=== PATIENT | male | born 2000 | race Caucasian/White ===

== ENCOUNTER 2022-12-26 12:41 | Emergency (ER) | payer OTHER, SELFPAY ==
--- NOTE | ~2022-12-26 | XR_ITS ---
EXAMINATION: XR CHEST CLINICAL INFORMATION: Cough COMPARISON: None available. TECHNIQUE: 2 views of the chest were obtained. FINDINGS: The lungs are hyperinflated but clear of acute process. The heart size and pulmonary vascularity is normal. No gross bony abnormality seen. XR/XR chest 2V IMPRESSION: Hyperinflated lungs without acute process.
--- NOTE | 2022-12-26 13:09 | ED_ITS ---
HPI - URI/Sore Throat General Chief Complaint: Upper Respiratory Symptoms Stated Complaint: throat pain Time Seen by Provider: 12/26/22 13:29 Source: patient and family Mode of arrival: ambulatory History of Present Illness HPI Narrative: 22yo M w/ PMHx childhood asthma c/o dry cough, sore throat and mild SOB at night x6 days. Admits to sick contacts w/ similar cough. Denies difficulty/inability to swallow, fever, chills, ear pain, recent travel, chest pain MD elicited complaint: cough Onset (ago): day(s) Related Data Allergies Allergy/AdvReac Type Severity Reaction Status Date / Time No Known Allergies Allergy Verified 12/26/22 13:09 Review of Systems Review of Systems: Constitutional: No Fever, No Chills ENT/Mouth: No Ear Pain, No Nasal Congestion, No Sinus Pain, No Hoarseness, + sore throat, No Rhinorrhea, No Swallowing Difficulty Cardiovascular: No Chest Pain, + SOB Respiratory: + Cough, No Sputum, No Wheezing Gastrointestinal: No Nausea, No Vomiting, No Abdominal pain Genitourinary: No Dysuria, No Urinary Frequency, No Hematuria, No Flank Pain Musculoskeletal: No joint pain, No Myalgias, No Joint Swelling Skin: No Skin Lesions, No rash Neuro: No Weakness Yes all other systems are reviewed and are negative Constitutional: Constitutional: Reports as per [facility] Past Medical History Attestation statement: The following information was validated with the patient. Source: old records reviewed Social History Social History Advance Directives: No Advance Directives Information Provided: No Physical Exam Vital Signs: Vital Signs: Last Vital Signs Temp 98.6 F 12/26/22 13:10 Pulse 64 12/26/22 13:10 Resp 16 12/26/22 13:10 BP 141/76 H 12/26/22 13:10 Pulse Ox 96 12/26/22 13:10 O2 Del Method Room Air 12/26/22 13:10 BMI result Body Mass Index 22.7 Const: General: cooperative, healthy appearing, no acute distress, alert and awake Orientation/consciousness: patient oriented x3 Limitations: no limitations HEENT: Head: Yes normal to inspection and Yes atraumatic Ears: hearing grossly normal bilaterally, external ears normal, TM's normal bilaterally and mastoids normal General nose exam: Normal external nose present Face and sinus: Yes normal facial exam Throat: Yes uvula midline, No peritonsillar mass, Yes posterior oropharynx abnormal (Erythematous), No uvula laterally displaced and No uvular edema Eyes: General: appearance normal, both eyes and all related structures EOM: EOMs intact bilaterally Neck: Neck: Yes normal visual inspection, Yes no meningeal signs, Yes supple and No anterior neck swelling Resp: Effort & Inspection: normal respiratory effort and no respiratory distress Auscultation: clear to auscultation bilaterally Cardio: Rate: regular rate Heart sounds: S1 normal heart sound present and S2 normal heart sound present Skin: Rashes: no rashes Wounds: no wounds Neuro: General: patient oriented x3, tone normal and no meningeal signs Gait exam (Neuro): Normal gait present Extrem: General: Yes normal to inspection Course Course Course Narrative: -COVID/flu and rapid strep negative XR chest 2V IMPRESSION: Hyperinflated lungs without acute process.? Results discussed with patient including worrisome signs and symptoms and strict return precautions, and when to return to the emergency department. They verbalized understanding and feel safe for discharge at this time. Medical Decision Making Medical Decision Making [facility] Narrative: 22yo M w/ PMHx childhood asthma c/o dry cough, sore throat and mild SOB at night x6 days. On exam vital signs stable, NAD, nontoxic appearing, mild posterior oropharyngeal erythema, no exudates, uvula midline, talking in complete sentences, lungs CTA. Concern for viral illness vs pharyngitis vs bronchitis. Rule out pneumonia. Low suspicion for ACS/PE Plan: COVID/flu, rapid strep, CXR Differential Diagnosis Differential Diagnoses: The differential diagnosis associated with the presentation includes As above Lab Data [facility] Lab Attestation statement: I reviewed the patient's lab results. Labs: Lab Results 12/26/22 12/26/22 12/26/22 Range/Units 13:18 13:18 13:18 COVID-19 (DAIN) Negative (Negative) COVID-19 Clin Com See Note Influenza Type A (ELLA) Negative (Negative) Influenza Type B (ELLA) Negative (Negative) Influenza A & B Note See Note S. pyogenes GrpA ELLA Negative (Negative) Radiology Impression Discussion of test interpretation with radiology: I have reviewed the radiologist's reading. Independent Historian Clinical information obtained from an independent historian. History obtained from or confirmed by: Parent External Record Review External record reviewed: Inpatient record, Office record, Outpatient record, Prior outpatient labs, Prior outpatient radiology, Primary care record and Outside ED record Tests considered The following testing was considered but not selected: As above Discharge Plan Discharge Clinical Impression: Bronchitis Patient Disposition: Home, Self-Care Instructions: Acute Bronchitis (ED) Additional Instructions: You tested negative for COVID, flu, and strep throat. Her x-ray is unremarkable Prednisone as a steroid which will help with bronchitis. Rest Stay hydrated Take Tylenol and Motrin as needed Follow-up with your doctor Referrals: Bert Murphy MD [Primary Care Provider] - 3 days
[2022-12-26 13:10] VITALS: BP 141/76; PULSE 64; RESP 16; TEMP 37; O2SAT 96; BMI 22.7
[2022-12-26 13:34] LABS: IDNOW Serial# 08D9AD1C; Strep A Nucleic Acid Negative (Negative)
[2022-12-26 13:44] LABS: COVID-19 Test Negative (Negative); IDNOW Serial# 9DB6401D
[2022-12-26 13:45] LABS: IDNOW Serial# BCCEAD1C; Influenza A Negative (Negative); Influenza B2 Negative (Negative)
== END 2022-12-26 14:27 | disposition home or self-care (01) ==
PROVIDERS: Physician Assistant; Emergency Provider Emergency Medicine; PCP Family Medicine
DX: J40 Bronchitis, not specified as acute or chronic (principal); Z20.822 Contact with and (suspected) exposure to COVID-19
CPT/HCPCS: 71046; 87502; 87635; 87651; 99282; 99283

== ENCOUNTER 2023-01-19 10:42 | Outpatient (REF) | payer OTHER, SELFPAY ==
[2023-01-19 14:20] LABS: Appearance Urine Cloudy; Color Urine Dark Yellow; Glucose Urine UA Negative (Negative); Leukocyte Esterase Urine Negative (Negative); Nitrite Urine Negative (Negative); Specific Gravity - Urine >= 1.030 (1.005-1.025); Urine Blood Negative (Negative); Urine Ketones Negative (Negative); Urine Protein Negative (Neg-Trace)
[2023-01-19 14:29] LABS: Alanine Aminotransferase 68 U/L (0-40); Albumin Level 4.5 g/dL (3.5-5.0); Alkaline Phosphatase 58 U/L (39-117); Anion Gap 13 (12-20); Aspartate Amino Transferase 31 U/L (5-37); Bilirubin Total 3.9 mg/dL (0.0-1.0); Blood Urea Nitrogen 17 mg/dL (9-16); Calcium 9.3 mg/dL (8.4-10.2); Carbon Dioxide 27 mmol/L (22-29); Chloride 105 mmol/L (96-108); Cholesterol 133 mg/dL; Estimated Glomerular Filt Rate > 60; Glucose Fasting 91 mg/dL (60-99); HDL Cholesterol 38 mg/dL; LDL Cholesterol Calculated 81 mg/dl; Sodium 141 mmol/L (135-145); Total Protein 6.7 g/dL (6.5-8.0); Triglycerides 74 mg/dL
[2023-01-19 14:37] LABS: TSH reflex Free T4 1.42 uIU/mL (0.32-4.0)
[2023-01-19 15:20] LABS: Creatinine Urine 331.71 mg/dL; Microalbum/Creatinine Ratio Ur 6.9 ug/mg cr
[2023-01-20 01:47] LABS: Syphilis Screen Nonreactive (Nonreactive)
[2023-01-20 07:41] LABS: HBS Num1 1.74 mIU/mL (0-7.99); HBsAGNum1 0.39 S/CO (0.00-0.99); HIV AB/AG Nonreactive (Nonreactive); HIV Num 1 0.09 S/CO (0.00-0.99); Hepatitis B Core Antibody Nonreactive (Nonreactive); Hepatitis B Surface Antigen Negative (Negative); ~HepC Num1 0.11 S/CO (0.00-0.79); ~Hepatitis B Surface Antibody NONREACTIVE (Nonreactive); ~Hepatitis C Antibody Nonreactive (Nonreactive)
== END 2023-01-19 10:43 | disposition home or self-care (01) ==
LOC: HO.WFDLDS 10:42
PROVIDERS: Visit Provider Family Medicine
DX: Z00.00 Encounter for general adult medical examination without abnormal findings (principal); Z11.3 Encounter for screening for infections with a predominantly sexual mode of transmission; Z11.4 Encounter for screening for human immunodeficiency virus [HIV]; I10 Essential (primary) hypertension
CPT/HCPCS: 36415; 80053; 80061; 81003; 82043; 84443; 86704; 86706; 86780; 86803; 87340; 87389

== ENCOUNTER 2023-04-06 11:36 | Outpatient (AMB) | payer OTHER, SELFPAY ==
[2023-04-06 11:50] VITALS: BP 118/68; PULSE 83; O2SAT 98; BMI 23.3
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
== END 2023-04-06 12:33 | disposition home or self-care (01) ==
PROVIDERS: Visit Provider Family Medicine
DX: R74.01 Elevation of levels of liver transaminase levels (principal); R17 Unspecified jaundice; E78.6 Lipoprotein deficiency; R51.9 Headache, unspecified; Z00.00 Encounter for general adult medical examination without abnormal findings
CPT/HCPCS: 99214

== ENCOUNTER 2023-04-06 12:34 | Outpatient (REF) | payer OTHER, SELFPAY ==
[2023-04-06 14:39] LABS: MANUAL DIFF FLAG NO
[2023-04-06 14:45] LABS: Basophils Percent Auto 0.8 % (0-2); Eosinophils Absolute Auto 0.1 X10*3/uL (0.0-0.4); Eosinophils Percent Auto 2.4 % (0-4); Hematocrit 47.5 % (42.0-52.0); Hemoglobin 16.8 g/dl (14.0-18.0); Imm Gran Abs Auto 0.01 X10*3/uL (0.00-0.03); Imm Gran Pct Auto 0.2 % (0.0-0.4); Lymphocytes Absolute Auto 1.6 X10*3/uL (1.2-4.9); Lymphocytes Percent Auto 31.9 % (20-40); Mean Corpuscular HGB Conc 35.4 g/dl (31.0-36.0); Mean Corpuscular Hemoglobin 30.4 pg (27.0-33.0); Mean Corpuscular Volume 86.1 fL (80.0-98.0); Mean Platelet Volume 10.4 fL (9.4-12.4); Monocytes Absolute Auto 0.3 X10*3/uL (0.1-1.2); Monocytes Percent Auto 6.4 % (2-11); Neutrophils Absolute Auto 2.9 x10*3/uL (2.0-8.3); Neutrophils Percent Auto 58.3 % (45-73); Platelet Count 262 X10*3/uL (160-400); Red Blood Count 5.52 X10*6/uL (4.60-5.80); Red Cell Distribution Width 12.2 % (11.0-16.0)
[2023-04-06 15:19] LABS: Alanine Aminotransferase 19 U/L (0-40); Albumin Level 4.8 g/dL (3.5-5.0); Alkaline Phosphatase 59 U/L (39-117); Anion Gap 11 (12-20); Aspartate Amino Transferase 21 U/L (5-37); Bilirubin Direct 0.4 mg/dL (0.0-0.5); Bilirubin Total 3.1 mg/dL (0.0-1.0); Blood Urea Nitrogen 14 mg/dL (9-16); Calcium 9.5 mg/dL (8.4-10.2); Carbon Dioxide 29 mmol/L (22-29); Chloride 104 mmol/L (96-108); Estimated Glomerular Filt Rate > 60; Glucose Random 77 mg/dL (60-115); Potassium 4.2 mmol/L (3.3-5.1); Sodium 140 mmol/L (135-145); Total Protein 7.4 g/dL (6.5-8.0)
[2023-04-06 15:25] LABS: Erythrocyte Sedimentation Rate 1 MM/HR (0-15)
[2023-04-06 18:10] LABS: CT PCR NOT DETECTED (Not Detect.); NG PCR NOT DETECTED (Not Detect.)
[2023-04-07 15:54] LABS: CRP High Sensitivity 0.3 mg/L
== END 2023-04-06 12:35 | disposition home or self-care (01) ==
LOC: HO.WFDLDS 12:34
PROVIDERS: Visit Provider Family Medicine
DX: Z00.00 Encounter for general adult medical examination without abnormal findings (principal); Z11.3 Encounter for screening for infections with a predominantly sexual mode of transmission; M54.9 Dorsalgia, unspecified; R17 Unspecified jaundice
CPT/HCPCS: 0353U; 80053; 82248; 85025; 85652; 86141

== ENCOUNTER 2025-07-13 15:43 | Outpatient (AMB) | payer OTHER, SELFPAY ==
[2025-07-13 15:47] VITALS: BP 128/66; PULSE 62; TEMP 36.4; O2SAT 97; BMI 25.7
--- NOTE | 2025-07-13 15:47 | MHC.PC.OV ---
Vital Signs 07/13/25 15:47 Height 5 ft 8 in Weight 169 lb 2 oz BMI 25.7 BP 128/66 Blood Pressure Location Lt brachial Position Sitting Pulse 62 Pulse Source Pulse Oximeter Temp 97.5 F Temp Source Temporal Artery Scan Pulse Oximetry (%) 97 Oxygen Delivery Method Room Air Intake Visit Reasons: Establish care Allergies No Known Allergies Allergy (Verified 07/13/25 15:50) Medication List - Last Reconciled 07/13/25 by Macho Roberts MD No Known Home Meds Tobacco use date assessed: 07/13/25 Dental Screening Dental Screen Date: 07/13/25 Did you have a dental visit in the last 12 months?: No Did you have a dental problem in the last 6 months where you did not have access to dental care?: No Was dental information given to patient?: Patient has dentist HPI HPI Comments History of Present Illness Details The patient is a 25 year old individual presenting for a general checkup and to discuss several health concerns, primarily numbness in the left toe. The patient reports that half of the left large toe is numb with no sensation to poking, which the patient believes started sometime after an injury sustained around age 10 or 11 when a shower door slammed on the toe. Following the injury, the toenail has grown abnormally, with the left side growing slower than the right. The patient has a history of recurrent ganglion cysts, having had them on both wrists simultaneously at one point, which resolved on their own after a couple of months. Another cyst appeared on one wrist and persisted for about two years, causing annoyance and pain, but it recently resolved after the patient started a new job involving heavy lifting. The patient also reports a bothersome numbness in the mid-back area that occurs after standing still for about 5-7 minutes, such as when doing dishes, which is not relieved by stretching. Additionally, the patient experiences pain in both hands when holding objects or performing repetitive motions. Past medical history is significant for childhood asthma, which has since resolved. The patient was prescribed medication for ADHD as a child but never took it. Family history is notable for a father who had a liver tumor in his 70s and a mother with a heart problem diagnosed in her 60s. The patient denies any family history of colon cancer or heart problems at a young age. The patient denies smoking or drinking alcohol. 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 1. Little interest or pleasure in doing things: not at all 2. Feeling down, depressed, or hopeless: not at all 3. Trouble falling or staying asleep, or sleeping too much: not at all 4. Feeling tired or having little energy: not at all 5. Poor appetite or overeating: not at all 6. Feeling bad about yourself - or that you are a failure or have let yourself or your family down: not at all 7. Trouble concentrating on things, such as reading the newspaper or watching television: not at all 8. Moving or speaking so slowly that other people could have noticed. Or the opposite - being so fidgety or restless that you have been moving around a lot more than usual: not at all 9. Thoughts that you would be better off or of hurting yourself in some way: not at all Total score: 0 Depression Screening Interpretation: Negative Depression Screening Done: Yes 14207 - PHQ-9 Billing: Yes Source: Developed by Drs. Myles Fisher, Shy Lewis, Phuc Garcia and colleagues, with an educational chris from [employer]. Thrive Questionnaire Date Thrive assessed: 07/13/25 I am a: Patient What is your living situation today?: I have a steady place to live Within the past 12 months, did the food you bought not last and you didn't have the money to get more?: I choose not to answer this question Within the past 12 months, did you worry whether your food would run out before you got money to buy more?: I choose not to answer this question Do you have trouble paying for medicines?: I choose not to answer this question Do you have trouble getting transportation to medical appointments?: I choose not to answer this question Do you have trouble paying your heating and electricity bill?: I choose not to answer this question Do you have trouble taking care of your child, family member or friend?: I choose not to answer this question Do you have trouble with day-to-day activities such as bathing, preparing meals, shopping, managing finances, etc.?: I choose not to answer this question Are you currently unemployed and looking for a job?: I choose not to answer this question Are you interested in more education?: I choose not to answer this question Please select the resources that you would like help with: None Currently or been in a relationship where the following occur: I choose not to answer THRIVE Score: 0 AUDIT C Alcohol Use Questionnaire (AUDIT-C) 1. How often do you have a drink containing alcohol?: Never 3. How often do you have six or more drinks on one occasion?: Never Total Score: 0 JONES-7 AMB Questionnaire JONES-7 Date JONES - 7 assessed: 07/13/25 Feeling nervous, anxious, or on edge: 0 = Not at all Not being able to stop or control worryin = Not at all Worrying too much about different things: 0 = Not at all Trouble relaxin = Not at all Being so restless that it is hard to sit still: 0 = Not at all Becoming easily annoyed or irritable: 0 = Not at all Feeling afraid as if something awful might happen: 0 = Not at all Total JONES-7 score (0-4 normal; 5-9 mild; 10-14 moderate; 15-21 severe): 0 Source: Developed by Drs. Myles Fisher, Shy Lewis, Phuc Garcia and colleagues, with an educational chris from [employer]. JONES-7 Assessment Billing JONES-7 Assessment Tool: JONES-7 Assessment 79655 Review of Systems Const Details: As per HPI. Physical exam (Primary Care) Vital Signs: Last Vital Signs Temp 97.5 F 07/13/25 15:47 Pulse 62 07/13/25 15:47 BP 128/66 07/13/25 15:47 Pulse Ox 97 07/13/25 15:47 Oxygen Delivery Method Room Air 07/13/25 15:47 BMI result Body Mass Index 25.7 Tobacco/Smoking Status: Tobacco use Status Tobacco use date assessed 07/13/25 07/13/25 15:54 Patient Tobacco Use Status Never used Tobacco 07/13/25 15:54 e-Cigarette/Vaping Use Never Used 07/13/25 15:54 PHQ-9: PHQ-9 Score PHQ-9: Total score 0 07/13/25 15:54 Depression Screening Interpretation: Negative Thrive Assessment: Date of Thrive Assessment Date Thrive assessed 07/13/25 07/13/25 15:54 Currently or been in a relationship where the following occur: I choose not to answer Const Other: Pertinent findings are in BOLD GENERAL APPEARANCE NAD, activity normal for age, well developed/ well nourished, no cyanosis, pallor, or diaphoresis. EYES lids/conjunctiva normal. EARS/NOSE/THROAT Mucous membranes moist, nares normal, lips/teeth normal uvula midline without oral pharyngeal erythema, exudate or swelling TMs normal bilaterally. No lymphangitis/lymphedema. HEAD/NECK normocephalic atraumatic, no facial trauma, neck is supple. RESPIRATORY respiratory effort normal, speaks in full sentences, no tripod position, no accessory muscle use. Lungs clear to auscultation without rhonchi, wheezes, rales CARDIAC Regular rate and rhythm, no edema. ABDOMINAL Soft, ND/NT. No evidence of fluid wave. No pulsatile masses on exam, rebound tenderness, Gonzalez sign or pain over Mcburney's point. MUSCLES/EXTREMITIES No abnormal range of motion, no swelling. Left large toe nail deformity. SKIN Warm, pink and dry. No rashes, dermatoses, petechiae or lesions. NEUROLOGICAL Speech is clear and appropriate. Normal level of consciousness. Gait and coordination are normal. 5/5 strength in all extremities. PSYCH Normal mood and affect. Judgement/competence is appropriate Coding Level of Care Code New Pt Level 4 (37621) Diagnoses Laceration of left great toe without foreign body with damage to nail, initial encounter S91.212A Encounter type: initial encounter Toe: great toe Foreign body presence: without foreign body Chronic midline thoracic back pain M54.6; G89.29 Back pain location: thoracic back pain Chronicity: chronic Back pain laterality: midline Ganglion cyst M67.40 Bilateral hand pain M79.641; M79.642 Additional Codes JONES-7 Assessment Billing - JONES-7 Assessment Tool: JONES-7 Assessment 97392 ([id number]) PHQ-9 - 60151 - PHQ-9 Billing: Yes ([id number]) Assessment & Plan Assessment & Plan (1) Laceration of toe of left foot with damage to nail: Code(s): S91.219A - Laceration without foreign body of unspecified toe(s) with damage to nail, initial encounter Category: Medical Qualifiers: Encounter type: initial encounter Toe: great toe Foreign body presence: without foreign body Qualified Code(s): S91.212A - Laceration without foreign body of left great toe with damage to nail, initial encounter Plan: - The numbness is likely due to a remote nerve injury from childhood trauma. - A systemic cause is unlikely as symptoms are localized and there is no numbness in the other foot. - Plan to refer the patient to a comptometer operator for evaluation of both the nail abnormality and the chronic numbness. (2) Back pain: Code(s): M54.9 - Dorsalgia, unspecified Category: Medical Qualifiers: Back pain location: thoracic back pain Chronicity: chronic Back pain laterality: midline Qualified Code(s): M54.6 - Pain in thoracic spine; G89.29 - Other chronic pain Plan: - The numbness in the mid-back with prolonged standing could be muscular or potentially related to an old, minor vertebral fracture. - Plan to obtain an X-ray of the thoracic spine to rule out a bony abnormality. 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 - Plan to refer to orthopedics for consideration of definitive treatment if the cyst recurs. - The patient was instructed to contact the clinic via phone or patient portal to arrange the referral if needed. (4) Bilateral hand pain: Code(s): M79.641 - Pain in right hand; M79.642 - Pain in left hand Category: Medical Plan: - The hand pain is mechanical, triggered by repetitive motion, and not suggestive of a serious condition. - Carpal tunnel syndrome is less likely as Phalen's and Tinel's tests were negative. - Plan to manage with activity modification and the use of an [id number] hand brace during triggering activities. Plan I discussed the likely cause of the patient's left toe numbness, explaining that it is probably related to a nerve injury sustained in childhood. I have referred the patient to a comptometer operator for further evaluation. For the patient's history of ganglion cysts, I advised contacting our clinic for an orthopedic referral should the cyst reappear. Regarding the back numbness, I explained that it could be muscular but ordered an X-ray to rule out a small fracture, which would inform activity limitations. I reassured the patient that the bilateral hand pain appears to be mechanical in nature and not a serious concern after a negative in-office exam for carpal tunnel syndrome; I recommended trying a hand brace. We discussed the plan for baseline lab work and a follow-up appointment in four months to review all findings and conduct a full physical. We also had a discussion about the patient's childhood history of an ADHD diagnosis and how it may have affected a professional application; I conveyed that it should not be a factor in a current assessment, but advised the patient to seek clarification from the organization in question. Orders: Orders XR cervical spine 2V Today M54.9 - Dorsalgia, unspecified Hemoglobin A1c Today Z00.00 - Encounter for general adult medical examination without abnormal findings TSH reflex Free T4 Today Z00.00 - Encounter for general adult medical examination without abnormal findings Vitamin D 25-OH Total Today Z00.00 - Encounter for general adult medical examination without abnormal findings XR thoracic spine 2V Today M54.9 - Dorsalgia, unspecified Complete Blood Count no Diff Today Z00.00 - Encounter for general adult medical examination without abnormal findings Comprehensive Met. Panel Today Z00.00 - Encounter for general adult medical examination without abnormal findings Lipid Panel Today Z00.00 - Encounter for general adult medical examination without abnormal findings Referrals Podiatry Referral S91.219A - Laceration without foreign body of unspecified toe(s) with damage to nail, initial encounter
--- OUTSIDE RECORDS SUMMARY | 2025-07-13 15:47 | XMS_ITS | Encounter Summary ---
Author Organization [facility] Address [address] [place] [address] Phone Care Team Providers Care Project Administrative Assistant Name Role Phone Earl Bahena MD Primary Care Provider Racquel love Encounter Details Date Type Department Care Team (Late st Contact Info) Description 05/17/2010 Documentation [facility] [place] [facility] [address] [place] [address] Family Medicine, Physician [address] [place] [address] Social History Tobacco Use Types Packs/Day Years Used Date Smoking Tobacco: Never Assessed Sex and Gender Information Value Date Recorded Sex Assigned at Male 04/17/2019 4:26 PM EDT Legal Sex Male 5:24 PM EDT Gender Identity Male 04/17/2019 4:26 PM EDT Sexual Orientation Straight 04/17/2019 4: 26 PM EDT documented as of this encounter Plan of Treatment Not on file documented as of this encounter Visit Diagnoses Not on filedocumented in this encounter Care Teams Project Administrative Assistant Relationship Specialty Start Date End Date Earl Bahena MD PCP - General Pediatrics 11/21/21 02/09/23 documented as of this encounter
--- OUTSIDE RECORDS SUMMARY | 2025-07-13 15:47 | XMS_ITS | Encounter Summary ---
Author Organization [facility] Address [address] [place] [address] Phone Care Team Providers Care Creative Recruiter Name Role Phone Earl Bahena MD Primary Care Provider Racquel love Encounter Details Date Type Department Care Team (Late st Contact Info) Description 03/20/[address] [facility] [place] Family Medicine [address] [place] [address] Family Medicine, Physician [address] [place] [address] Social History Tobacco Use Types Packs/Day Years [...] on filedocumented in this encounter Care Teams Creative Recruiter Relationship Specialty Start Date End Date Earl Bahena MD PCP - General Pediatrics 11/21/21 02/09/23 documented as of this encounter
--- OUTSIDE RECORDS SUMMARY | 2025-07-13 15:47 | XMS_ITS | Encounter Summary ---
Author Organization [facility] Address [address] [place] [address] Phone Care Team Providers Care De Alcoholizer Name Role Phone Earl Bahena MD Primary Care Provider Racquel love Encounter Details Date Type Department Care Team (Late st Contact Info) Description 04/08/2017 Conversion Encounter [facility] - [address] [address] Social History Tobacco Use Types Packs/Day Years Used Date Smoking Tobacco: Never Comments:Never smoker Sex and Gender Information Value Date Recorded Sex Assigned at Male 04/17/2019 4:26 PM EDT Legal Sex Male 5:24 PM EDT Gender Identity Male 04/17/2019 4:26 PM EDT Sexual Orientation Straight 04/17/2019 4: 26 PM EDT documented as of this encounter Plan of Treatment Not on file documented as of this encounter Visit Diagnoses Not on filedocumented in this encounter Care Teams De Alcoholizer Relationship Specialty Start Date End Date Earl Bahena MD PCP - General Pediatrics 11/21/21 02/09/23 documented as of this encounter
--- OUTSIDE RECORDS SUMMARY | 2025-07-13 15:47 | XMS_ITS | Clinical Summary ---
Author Organization [facility] Address [address] [place] [id number] Phone Care Team Providers Care Blender Conveyor Operator Name Role Phone Unavailable Primary Care Provider Unavailabl e Allergies Active Allergy Reactions Criticality Noted Date Comments Environmental Molds & Smuts Medications Acetaminophen 650 MG/20.3ML solution Take 650 mg by mouth. 0 Active Liquid Pain Relief 160 MG/5ML liquid 0 Active Senna 176 MG/5ML syrup 10 mL. 0 Active sodium chloride 0.65 % nasal spray Administer 2 sprays into affected nostril(s) 6 times daily. 0 Active ibuprofen 100 MG/5ML suspension 0 Active Active Problems Problem Noted Date Diagnosed Date Refused influenza vaccine 05/14/2020 Overview (05/14/2020): Rd will discuss with Dad and hopefully return. Chronic non-seasonal allergic rhinitis 7 Overview (12/17/2021): Not an issue he says Assessment & Plan (12/17/2021 10:48 PM EDT): Follow up if needed Assessment & Plan (02/16/2019 4:27 PM EDT): Recent cough and sneezing likely 2nd to allergies. Zyrtec ordered. To take 1x per day as needed for allergy symptoms Ichthyosis vulgaris 07/20/2014 Overview (12/17/2021): 05/12 - just using topical moisturizers at this point. Followed by derm in [place]. Treated with compounded triamcinolone/Urea/Ammonium lactate 12/12: now much better, no longer followed by derm Assessment & Plan (12/17/2021 11:18 AM EDT): Use creams, seems pretty mild today Resolved Problems Problem Noted Date Diagnosed Date Resolved Date Stage 1 hypertension 04/04/2020 022 Overview (08/24/2020): 08/24/2020 (age 20yr): Complete work up through [facility]. HTN thought to related to post surgical trauma and pain. Saw Dr. Higgins 11/2019, needs follow up. 04/17/2020 - Had follow up with Dr. Holbrook (preferred virtual). Dagnosed with stage 1 HTN after ambulatory BP monitor. Lifestyle counseling done. F/U Dr. Holbrook in 2 months (05/2020) and will consider meds BP not improved. 07/12/2020: Complete evaluation by endo, all normal. HTN thought to be related to post surgical trauma and pain. Plan was to check BP at home q 1-2 weeks and f/u with PCP for cardio. No f/u with endo requested. Assessment & Plan (04/04/2020 9:05 PM EDT): 04/04/2020 (age 19yr): Rd was seen virtual visit with Dr. Higgins 11/2019 for high blood pressure. They rescheduled several appointments since that time. Dad is here because he prefers to be seen in person. Since Dr. Hernandez's office is not seeing anyone in person unless they need an echo, we will refer Rd to [facility] for in person visit. BP (high blood pressure) 04/04/202009/2020 Overview (08/24/2020): 08/24/2020 (age 20yr): Complete endo work up normal, no endocrine follow up recommended. Will nee to continue to monitor. 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 Was asymptomatic at this time. At baseline - prior to surgery BP's usually 120/80 - no palpitations - no abdominal pain, no GI sx - never experienced any headaches - intermittent agitation : dad describes that patient will be calm and suddenly will become hyper and agitated for several minutes and cool down again without any obvious cause Since hospitalization - one week- 2 weeks ago HR monitor: no findings - taking BP's: have been- 139/74; 134/84 -67; 130/85 62; 137/84; no SBP <120 or >140 Last Assessment & Plan: C/f pheochromocytoma given intermittent hypertension, elevated urine metanephrines. Although patient is relatively asymptomatic aside from bursts of agitation. Secondary htn work-up done in pt otherwise not remarkable- no elevation of aldosterone, no BAUDILIO. 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 Given severe HTN 24 hour urine metanephrines and plasma metanephrines were checked on POD#1 which were slightly elevated likely due to surgical stress. Adrenal CT normal. Repeat plasma metanephrines 04/16 and 24 h urine metanephs 06/18/20 were normal. Pheochromocytoma / paraganglioma has been ruled out. Renal duplex ultrasound was also done and ruled out renal artery stenosis (report was confusing RE this question but have reviewed with radiology and nephrology). Rahat / renin levels have also ruled out primary aldosteronism. At baseline - prior to surgery BP's usually 120/80 - no palpitations - no abdominal pain, no GI sx - never experienced any headaches - intermittent agitation : dad describes that patient will be calm and suddenly will become hyper and agitated for several minutes and cool down again without any obvious cause Since hospitalization - one week- 2 weeks ago HR monitor: no findings - taking BP's: have been- 139/74; 134/84 -67; 130/85 62; 137/84; no SBP <120 or >140 Last Assessment & Plan: Reviewed test results with pt and his family on the phone. Tests for secondary causes of HTN have ruled out pheochromocytoma / paraganglioma, BAUDILIO and primary aldosteronism. BP at home has been ok. Severe high BP after surg may have been an exaggerated BP response to stress but abnormal vicki at his age. Counselled on low salt diet Continue BP check at home q 1-2 weeks for now FU with PCP RE BP Will not plan follow up but he is welcome to return to see me at any time if questions or concerns arise. 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 Followed by Oral surgery at [facility] Assessment & Plan (04/04/2020 2:53 PM EDT): 04/04/2020 (age 19yr): Has post op follow up on Wednesday (in 4 days). Has been having trouble sleeping due to pain and congestion. Suggest Dad reach out to the surgeons to discuss pain and airway management. Mild persistent asthma without complication 11/11/2016 04/11/2018 Attention deficit hyperactivity disorder 02/15/2013 12/17/2021 Overview (12/17/2021): Methylphenidate ER 30, prescribed by Juan Luis Oliveira. 12/12: says not a problem now Immunizations Immunization Administration Dates Next Due DTaP 5 11/24/2005, 3,2001,07/28,2001 H1N1 09/02/2009,07/12/2009 HPV Vaccine 9 Valent 01/30/2015 HPV, Quadrivalent 04/04/2014,03/01/2014 Hep A, ped/adol 01/30/2015,03/01/2014 Hep B, ped/adol 01/31/2002,2001,2001 Hib (PRP-T) 07/18/2002, 2,2001,05/27 IPV 11/24/2005, 2,2001,05/27 Influenza Split 06/21/2013 Influenza, injectable, MDCK, preservative free, quadrivalent 08/18/2016 Influenza, injectable, quadr ivalent, preservative free 04/24/2015,05/11/2014 Influenza, injectable, trivalent 009,07/11/2008,06/01/2007,08/04,08/19/2005 MMR 11/24/2005,04/18/2002 Meningococcal Conj (Menactra) MCV4P 04/11/2018,0 02/15/2013 Pneumococcal Conjugate 07/26/2004,2001,2001,06/06 Tdap 02/15/2013 Varicella 06/01/2007,04/18/2002 Family History Medical History Relation Name Comments No Known Problems Brother No Known Problems Father pat No Known Problems Mother zayra No Known Problems Sister Relation Name Status Comments Brother Alive Brother: ADD/AD HD / Asthma Father pat Alive Father: Allergi c rhinitis Mother zayra Alive Mother: Depress ion Other Family history of Seizure disorder, Family history of Diabetes mellitus, No family history of *CVA/Stroke, No family history of *Heart Disease, Family history of Obesity, No family history of *Sudden /[place] under 55, Family history of *Dental caries, Family history of Hypertension, Family history of Hyperlipidemia Sister Alive Sister: Alive a nd well Social History Tobacco Use Types Packs/Day Years Used Date Smoking Tobacco: Never Smokeless Tobacco: Never Comments:Never smoker Alcohol Use Standard Drinks/Week Comments No 0 (1 standard drink = 0.6 oz pur e alcohol) Hunger/Food Answer Date Recorded In the last 12 months, did y ou or your family ever eat less than you felt you should because there wasn't enough money for food? No 12/17/2021 Stable Housing Answer Date Recorded Are you worried that in the next 2 months you may not have stable housing? No 12/17/2021 Transportation Concerns Answer Date Rec orded In the last 12 months, have you or your family ever had to go without healthcare because you didn't have a way to get there? No 12/17/2021 Hazards in Home Answer Date Recorded Think about the place you li ve. Do you have problems with any of the following? Pests (mice or roaches), mold, no/not working smoke detectors, water leaks, no window guards. No 2021 Financing Utilities Answer Date Recorde d In the last 12 months, has t he electric, gas, oil, or water company threatened to shut off your services in your home? No 12/17/2021 Safety at Home Answer Date Recorded Are you or your family worried about feeling saf e in your home? No 12/17/2021 Outside Support Answer Date Recorded Do you feel that you need mo re support from other people or programs to help you care for yourself or your family? No 12/17/2021 Understanding Health Concerns Answer Da te Recorded Do you need help understandi ng your or your child's healthcare needs (diagnosis, medications, plan, etc.)? No 12/17/2021 Financing Health Concerns Answer Date R ecorded In the last 12 months, was t here a time when your child needed to see a doctor or get medications or supplies but could not because of cost? No 12/17/2021 Missing School or Work Answer Date Kp rded Did you or your child miss s chool or work because of a health problem that could have been avoided? No 12/17/2021 Sex and Gender Information Value Date Recorded Sex Assigned at Male 04/17/2019 4:26 PM EDT Legal Sex Male 5:24 PM EDT Gender Identity Male 04/17/2019 4:26 PM EDT Sexual Orientation Straight 04/17/2019 4: 26 PM EDT Last Filed Vital Signs Vital Sign Reading Time Taken Comments Blood Pressure 124/74 12/17/2021 11:00 AM EDT Pulse 84 12/17/2021 11:00 AM EDT Temperature 36.7 C (98 F) 12/17/2021 11:00 AM EDT Respiratory Rate 20 11/16/2019 1:30 PM EDT Oxygen Saturation 97% 11/16/2019 1:30 PM EDT Inhaled Oxygen Concentration - - Weight 66.7 kg (147 lb) 12/17/2021 11:00 AM EDT Height 172.7 cm (5' 8 ) 12/17/2021 11:00 AM EDT Body Mass Index 22.35 12/17/2021 11:00 AM EDT Plan of Treatment Health Maintenance Due Date Last Done Comments DTaP,Tdap,and Td Vaccines (7 - Td or Tdap) 02/15/2023 02/15/2013, 11/24/2005, 10/19/2002, Additional history exists Influenza Vaccines (#1) 2025 08/18/20 16, 04/24/2015, 05/11/2014, Additional history exists COVID-19 Vaccine ( season) 2025 06/22/2021, 05/25/2021 Hepatitis B Vaccines Completed 01/31/2002, 2001, 2001 HIB Vaccines Completed 07/18/2002, 03/2002, 2001, Additional history exists Pneumococcal Vaccine Completed 07/26/2004, 2001, 2001, Additional history exists IPV Vaccines Completed 11/24/2005, 03/2002, 2001, Additional history exists MMR Vaccines Completed 11/24/2005, 04/18/2002 Varicella Vaccines Completed 06/01/2007, 04/18/2002 HPV Vaccines Completed 01/30/2015, 03/23, 03/01/2014 Hepatitis A Vaccines Completed 01/30/2015, 03/01/20 14 Meningococcal Vaccine Completed 04/11/2018, 013 Men B Vaccine Aged Out No longer elig ible based on patient's age to complete this topic
--- OUTSIDE RECORDS SUMMARY | 2025-07-13 15:47 | XMS_ITS | Encounter Summary ---
Author Organization [facility] Address [address] [place] [address] Phone Care Team Providers Care Architectural Draftsperson Name Role Phone Earl Bahena MD Primary Care Provider Racquel love Encounter Details Date Type Department Care Team (Late st Contact Info) Description 07/16/2014 Documentation [facility] [place] Family Medicine [address] [place] [address] Family Medicine, Physician [address] [place] [address] Social History Tobacco Use Types Packs/Day Years [...] on filedocumented in this encounter Care Teams Architectural Draftsperson Relationship Specialty Start Date End Date Earl Bahena MD PCP - General Pediatrics 11/21/21 02/09/23 documented as of this encounter
--- OUTSIDE RECORDS SUMMARY | 2025-07-13 15:47 | XMS_ITS | Encounter Summary ---
Author Organization [facility] Address [address] [place] [address] Phone Care Team Providers Care Steam Locomotive Firer/Fireman Name Role Phone Earl Bahena MD Primary Care Provider Racquel love Encounter Details Date Type Department Care Team (Late st Contact Info) Description 10/24/2015 [place] [facility] [place] [address] [place] [address] Family Medicine, Physician [address] [place] [address] Social History Tobacco Use Types Packs/Day Years [...] on filedocumented in this encounter Care Teams Steam Locomotive Firer/Fireman Relationship Specialty Start Date End Date Earl Bahena MD PCP - General Pediatrics 11/21/21 02/09/23 documented as of this encounter
== END 2025-07-13 16:23 | disposition home or self-care (01) ==
LOC: HO.HMCH 15:44
PROVIDERS: Visit Provider Internal Medicine
DX: S91.212A Laceration without foreign body of left great toe with damage to nail, initial encounter (principal); M54.6 Pain in thoracic spine; G89.29 Other chronic pain; M67.40 Ganglion, unspecified site; M79.641 Pain in right hand; M79.642 Pain in left hand

== ENCOUNTER → 2025-07-13 15:43 | Outpatient (BNVA) | payer OTHER, SELFPAY | PROVIDERS: Visit Provider Internal Medicine | DX: Z00.00 Encounter for general adult medical examination without abnormal findings (principal); R20.0 Anesthesia of skin; M54.6 Pain in thoracic spine; G89.29 Other chronic pain; M67.431 Ganglion, right wrist; M67.432 Ganglion, left wrist; M79.641 Pain in right hand; M79.642 Pain in left hand; S91.21 Laceration without foreign body of toe with damage to nail; X58.XXXS Exposure to other specified factors, sequela | CPT/HCPCS: 96127; 99202 ==

== ENCOUNTER 2025-08-11 08:45 | Outpatient (REF) | payer OTHER, SELFPAY ==
--- NOTE | ~2025-08-11 | XR_ITS ---
EXAMINATION: Thoracic spine 2 views. CLINICAL INDICATION: Dorsalgia COMPARISON: None. FINDINGS: There is maintained thoracic kyphosis. The vertebral heights and alignment is normal. No visible acute fracture, dislocation or subluxation seen. The paravertebral soft tissues are normal. XR/XR cervical spine 2V IMPRESSION: Normal dorsal spine exam. Electronically signed by: Enrrique Ramey MD 08/13/2025 07:07 AM EST
--- NOTE | ~2025-08-11 | XR_ITS ---
EXAMINATION: Thoracic spine 2 views. CLINICAL INDICATION: Dorsalgia COMPARISON: None. FINDINGS: There is maintained thoracic kyphosis. The vertebral heights and alignment is normal. No visible acute fracture, dislocation or subluxation seen. The paravertebral soft tissues are normal. XR/XR thoracic spine 2V IMPRESSION: Normal dorsal spine exam. Electronically signed by: Enrrique Ramey MD 08/13/2025 07:07 AM [facility]
--- OUTSIDE RECORDS SUMMARY | 2025-08-11 08:49 | XMS_ITS | Encounter Summary ---
Author Organization [facility] Address [address] [place] [address] Phone Care Team Providers Care Flat Clothier Name Role Phone Earl Bahena MD Primary Care Provider Racquel love Encounter Details Date Type Department Care Team (Late st Contact Info) Description 07/16/2014 Documentation [facility] [place] Family Medicine [address] [place] [address] Family Medicine, Physician [address] [place] [address] Social History Tobacco Use Types Packs/Day Years [...] on filedocumented in this encounter Care Teams Flat Clothier Relationship Specialty Start Date End Date Earl Bahena MD PCP - General Pediatrics 11/21/21 02/09/23 documented as of this encounter
--- OUTSIDE RECORDS SUMMARY | 2025-08-11 08:49 | XMS_ITS | Encounter Summary ---
Author Organization [facility] Address [address] [place] [address] Phone Care Team Providers Care Technical Solutions Director Name Role Phone Earl Bahena MD Primary Care Provider Racquel love Encounter Details Date Type Department Care Team (Late st Contact Info) Description 03/20/2016 [place]ation [facility] [place] [address] [place] [address] Family Medicine, Physician [address] [place] [address] Social History Tobacco Use Types Packs/Day Years [...] on filedocumented in this encounter Care Teams Technical Solutions Director Relationship Specialty Start Date End Date Earl Bahena MD PCP - General Pediatrics 11/21/21 02/09/23 documented as of this encounter
--- OUTSIDE RECORDS SUMMARY | 2025-08-11 08:49 | XMS_ITS | Encounter Summary ---
Author Organization [facility] Address [address] [place] [address] Phone Care Team Providers Care Welder Manufacture Name Role Phone Earl Bahena MD Primary Care Provider Racquel love Encounter Details Date Type Department Care Team (Late st Contact Info) Description 04/08/2017 Conversion Encounter [facility] - [address] [address] Social History Tobacco Use Types Packs/Day Years [...] on filedocumented in this encounter Care Teams Welder Manufacture Relationship Specialty Start Date End Date Earl Bahena MD PCP - General Pediatrics 11/21/21 02/09/23 documented as of this encounter
--- OUTSIDE RECORDS SUMMARY | 2025-08-11 08:49 | XMS_ITS | Encounter Summary ---
Author Organization [facility] Address [address] [place] [address] Phone Care Team Providers Care Manager Spring Name Role Phone Earl Bahena MD Primary Care Provider Racquel love Encounter Details Date Type Department Care Team (Late st Contact Info) Description 10/24/2015 Documentation [facility] [place] [address] [place] [address] Family Medicine, Physician [address] [place] [address] Social History Tobacco Use Types Packs/Day Years [...] on filedocumented in this encounter Care Teams Manager Spring Relationship Specialty Start Date End Date Earl Bahena MD PCP - General Pediatrics 11/21/21 02/09/23 documented as of this encounter
--- OUTSIDE RECORDS SUMMARY | 2025-08-11 08:49 | XMS_ITS | Clinical Summary ---
Author Organization [facility] Address [address] [place] [id number] Phone Care Team Providers Care Facial Operator Name Role Phone Unavailable Primary Care [...] at this point. Followed by derm in [place]. Treated with compounded triamcinolone/Urea/Ammonium lactate 12/12: now much better, no longer followed by derm Assessment & Plan (12/17/2021 11:18 AM EDT): Use creams, seems pretty mild today Resolved Problems Problem Noted Date Diagnosed Date Resolved Date Stage 1 hypertension 04/04/2020 022 Overview (08/24/2020): 08/24/2020 (age 20yr): Complete work up through [facility]. HTN thought to related to post surgical [...] an echo, we will refer Rd to [facility] for in person visit. 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 Followed by Oral surgery at [facility] Assessment & Plan (04/04/2020 2:53 PM EDT): [...] of Obesity, No family history of *Sudden /NM under 55, Family history of *Dental caries, [...]
--- OUTSIDE RECORDS SUMMARY | 2025-08-11 08:49 | XMS_ITS | Encounter Summary ---
Author Organization [facility] Address [address] [place] [address] Phone Care Team Providers Care Sorting Supervisor Name Role Phone Earl Bahena MD Primary Care Provider Racquel love Encounter Details Date Type Department Care Team (Late st Contact Info) Description 05/17/2010 Documentation [facility] [place] [address] [place] [address] Family Medicine, Physician [address] [place] [address] Social History Tobacco Use Types Packs/Day Years [...] on filedocumented in this encounter Care Teams Sorting Supervisor Relationship Specialty Start Date End Date Earl Bahena MD PCP - General Pediatrics 11/21/21 02/09/23 documented as of this encounter
[2025-08-11 10:05] LABS: Hematocrit 46.4 % (42.0-52.0); Hemoglobin 16.3 g/dl (14.0-18.0); Mean Corpuscular HGB Conc 35.1 g/dl (31.0-36.0); Mean Corpuscular Hemoglobin 30.2 pg (27.0-33.0); Mean Corpuscular Volume 86.1 fL (80.0-98.0); NRBC Abs Auto 0.000 X10*3/uL (0.0-0.012); NRBC Pct Auto 0.0 /100WBC (0.0-0.2); Platelet Count 269 X10*3/uL (160-400); Red Blood Count 5.39 X10*6/uL (4.60-5.80); White Blood Count 3.9 X10*3/uL (4.8-10.8)
[2025-08-11 11:02] LABS: Alanine Aminotransferase 55 U/L (0-40); Albumin Level 4.7 g/dL (3.5-5.0); Alkaline Phosphatase 79 U/L (39-117); Anion Gap 14 (12-20); Aspartate Amino Transferase 53 U/L (5-37); Blood Urea Nitrogen 15 mg/dL (9-16); Calcium 9.6 mg/dL (8.4-10.2); Carbon Dioxide 26 mmol/L (22-29); Chloride 105 mmol/L (96-108); Cholesterol 141 mg/dL (<200); Estimated Glomerular Filt Rate > 60; HDL Cholesterol 46 mg/dL (>40); Potassium 5.3 mmol/L (3.3-5.1); Sodium 140 mmol/L (135-145); Total Protein 6.8 g/dL (6.5-8.0); Triglycerides 68 mg/dL (<150)
== END 2025-08-11 08:46 | disposition home or self-care (01) ==
LOC: HO.LAB 08:45
PROVIDERS: PCP Internal Medicine; Visit Provider Internal Medicine
DX: Z00.00 Encounter for general adult medical examination without abnormal findings (principal); M54.9 Dorsalgia, unspecified
CPT/HCPCS: 36415; 72040; 72070; 80053; 80061; 82306; 83036; 84443; 85027

== ENCOUNTER → 2025-08-11 08:49 | Outpatient (BNV) | payer OTHER, SELFPAY | PROVIDERS: PCP Internal Medicine; Visit Provider Radiology Diagnostic Radiology | DX: M54.2 Cervicalgia (principal); M54.6 Pain in thoracic spine | CPT/HCPCS: 72040; 72070 ==